=== PATIENT | female | born 1965 | race Caucasian/White ===

== ENCOUNTER 2019-04-19 13:43 | Emergency (ER) | payer MEDICAID, SELFPAY ==
[~2019-04-19] VITALS: Ht 160 cm; Wt 135.0 kg
[2019-04-19] MEDS ORDERED: SODIUM CHLORIDE FLUSH 10ML SYR IVF ONE (14:30)
[2019-04-19 14:49] LABS: BASOPHILS # (AUTO) 0.03 x10^3/uL (0-0.1); BASOPHILS % (AUTO) 0 % (0-1); EOSINOPHILS # (AUTO) 0.14 x10^3/uL (0-0.4); EOSINOPHILS % (AUTO) 2 % (1-7); LYMPHOCYTES # (AUTO) 3.14 x10^3/uL (1-3.4); LYMPHOCYTES % (AUTO) 32 % (22-44); MD NO; MEAN CORPUSCULAR HEMOGLOBIN 30.7 pg (27.0-34.8); MEAN CORPUSCULAR HGB CONC 32.7 g/dL (32.4-35.8); MEAN CORPUSCULAR VOLUME 94.1 fL (80-100); MEAN PLATELET VOLUME 7.5 fL (7.4-10.4); MONOCYTES # (AUTO) 0.29 x10^3/uL (0.2-0.8); MONOCYTES % (AUTO) 3 % (2-9); NEUTROPHILS # (AUTO) 6.16 x10^3/uL (1.8-6.8); NEUTROPHILS % (AUTO) 63 % (42-75); PLATELET COUNT 306 x10^3/uL (130-400); RED BLOOD COUNT 6.04 x10^6/uL (3.82-5.3); RED CELL DISTRIBUTION WIDTH 13.5 % (9.6-15.2)
[2019-04-19 15:02] LABS: ALANINE AMINOTRANSFERASE 19 U/L (12-78); ALBUMIN 3.7 g/dL (3.4-5.0); ANION GAP 7 mmol/L (5-15); CALCIUM 9.3 mg/dL (8.5-10.1); CHLORIDE 102 mmol/L (98-107); CREATININE 1.31 mg/dL (0.55-1.02); INTERNATIONAL NORMALIZED RATIO 1.01 (0.93-1.1); PROTHROMBIN TIME 10.7 Seconds (9.6-11.5)
[2019-04-19 15:04] LABS: ALKALINE PHOSPHATASE 84 U/L (45-117); BILIRUBIN,TOTAL 0.5 mg/dL (0.2-1.0); TOTAL PROTEIN 8.2 g/dL (6.4-8.2)
--- NOTE | 2019-04-19 15:09 | NUR ---
THIS IS A 53 YO F W/ C/O INGROWN TOENAILS. PT DOES NOT HAVE A PRIMARY CARE. PT LIVES AT HOME W/ . PT PANTS SOILED W/ URINE AND FECES. PT STATES "I DIDNT WANT YOU TO HAVE TO CLEAN ME UP". WHEN ASKED HOW SHE DOES IT AT HOME SHE STATED "I GET WHAT I CAN". LARGE PERINEAL RASH PRESENT. FRIENDS AT BEDSIDE STEPPED OUT OF ROOM FOR CLEANING. PT IS HYPERTENSIVE ALL OTHER VS WDL. NADN. PT RESTING ON GURNEY W/ CALL LIGHT IN REACH. LABS DRAWN. AWAITING ED EVAL.
--- NOTE | 2019-04-19 16:00 | NUR ---
DISCUSSED BP WITH DR BEST. AWAITING ORDERS.
[2019-04-19] MEDS ORDERED: hydrALAzine 20 MG/ML, 1ML IV ONE (16:30)
[2019-04-19] MEDS ORDERED: hydrALAzine 20 MG/ML, 1ML ONE (16:34)
[2019-04-19] MEDS ORDERED: SODIUM CHLORIDE FLUSH 10ML SYR IVF PRN (17:00)
--- NOTE | 2019-04-19 17:49 | NUR ---
SEBASTIAN BRANCH MANAGER IN ROOM.
--- NOTE | 2019-04-19 17:58 | NUR ---
VERIFIED WITH DR BEST. PT TO BE DC'D, NO ADMIT.
[2019-04-19 18:02] VITALS: BP 115/67
== END 2019-04-19 18:43 ==
LOC: ED 15:12 → SUATTDRO 17:08 → EDIP 17:09 → UNDOADMIN 17:09 → ED 18:43
PROVIDERS: ATTEND Internal Medicine
DX: I10 Essential (primary) hypertension (principal); L60.0 Ingrowing nail; E11.9 Type 2 diabetes mellitus without complications; Z76.0 Encounter for issue of repeat prescription
CPT/HCPCS: 36415; 80053; 83605; 85025; 85610; 85730; 87040; 93005; 96374; 99284; J0360